=== PATIENT | male | born 1965 | race Asian ===

== ENCOUNTER 2024-07-23 11:31 | Emergency (ER) | payer OTHER, SELFPAY ==
--- NOTE | ~2024-07-23 | XR_ITS ---
CLINICAL HISTORY: injury, left rib pain 4 view, chest and left ribs Comparison: None Findings: Bones intact. No dislocations. Coarse calcification adjacent to the head of the left humerus compatible with calcific tendinitis of the rotator cuff. The lungs are unremarkable. IMPRESSION: 1. No acute fractures. This document has been electronically signed by: Ingrid Escobar MD on 07/23/2024 13:16:05
[2024-07-23 11:44] VITALS: PULSE 74; RESP 18; TEMP 37.3; O2SAT 95; BMI 25.5
--- NOTE | 2024-07-23 11:46 | ED.CHESTPAIN ---
HPI - Chest Pain General Chief Complaint: General Medical Stated Complaint: Pain R side Time Seen by Provider: 07/23/24 13:01 Source: patient, family (Son) and manager medical affairs (Z[place]an) Mode of arrival: ambulatory Limitations: language barrier (Z[place]an) History of Present Illness ED Provider: ROLA TRIPATHI PA-C HPI narrative: 59 year old [place]an speaking male presents to the ED today for evaluation of abdominal pain x4-5 days. Reports pain starts to the left side of his abdomen and radiate to the left side of his back. Pain has been increasing since onset. He has been trialing Tylenol at home without improvement. Pain is currently 9/10. No clear exacerbating or relieving factors. He states he may have knocked into something at work however can not recall. Denies hx of similar. Denies any associated symptoms such as fever, chills, chest pain, SOB, cough, nausea or vomiting, constipation, diarrhea, urinary symptoms including dysuria or hematuria. Reports cholecystectomy approximately 10 years ago. No other abdominal surgeries. Denies any illicit substance use. Denies EtOH consumption. Related Data Previous Rx's ?Medication ?Instructions ?Recorded gabapentin 100 mg capsule 100 mg PO TID PRN pain (scale 07/23/24 score 4-6) 14 days #42 caps valacyclovir 1 gram tablet 1,000 mg PO TID 7 days #21 tabs 07/23/24 (Valtrex) Allergies Allergy/AdvReac Type Severity Reaction Status Date / Time No Known Allergies Allergy Verified 07/23/24 11:49 Review of Systems Review of Systems: Yes all other systems are reviewed and are negative PMFSH Past Medical History Attestation statement: The following information was validated with the patient. Source: old records reviewed, obtained from family and nursing notes reviewed Social History Social History Advance Directives: No Advance Directives Information Provided: No Physical Exam Vital Signs: Vital Signs: Last Vital Signs Temp 98.7 F 07/23/24 14:30 Pulse 71 07/23/24 14:30 Resp 16 07/23/24 14:30 BP 134/84 07/23/24 14:30 Pulse Ox 97 07/23/24 14:30 O2 Del Method Room Air 07/23/24 14:30 BMI result Body Mass Index 25.5 vital signs stable, afebrile General: Well appearing, in no acute distress. Skin: +see photo of abdomen below. grouped pustules on erythematous base along dermatomes T6-T10 wrapping around to left back along same dermatomes. does not cross midline. No sloughing. No target lesions. Spares palms/soles/mucous membranes/webbed spaces. Head: Normocephalic, atraumatic. EENT: Hearing is intact b/l. Conjunctiva clear. Sclera is anicteric. PERRLA. EOM intact. Moist mucous membranes.? Cardiac: Chest wall symmetric. RRR Lungs: Normal respiratory effort without accessory muscle use. CTA bilaterally? Abdomen: see above. Soft, non-tender, non-distended. No rebound tenderness or guarding. Positive BS x4. no cvat. Back: No midline spinous or paraspinal tenderness. No step off deformity. Ext: Upper and lower extremities atraumatic, without tenderness, deformity, swelling or erythema Neuro: AOx3. Normal speech. Strength 5/5 intact throughout. No saddle anesthesia. Sensation intact to light touch. NV intact distally. Ambulating with steady gait. Course Course Course Narrative: 07/23/24 1145 ABoyd Regalado APRN This is a rapid medical exam. Deferred additional HPI, ROS, PE to primary provider. 59 yo male with PMH of HTN here with complaints of left rib pain after a work injury 3 days ago. Turned and hit his ribs on a hard object. Will check x-rays. VSS Reevaluation(s) Reevaluation #1: Physical exam is consistent with shingles rash. Labs/imaging not warranted. XR ribs ordered from triage prior to my evaluation. No acute findings. > used a [place]an manager medical affairs to explain my findings to patient and his son at bedside. Valtrex and gabapentin sent to pharmacy for treatment. Patient agreeable with this. Discussed shingles precautions. Patient has remained stable throughout ED visit today. Discussed worrisome signs and symptoms and when to return to the ED. All questions answered at this time. Patient is agreeable with disposition and stable for discharge. Medical Decision Making Medical Decision Making MDM Narrative: 59 year old [place]an speaking male presents to the ED today for evaluation of abdominal pain x4-5 days. Vital signs stable, afebrile. He is nontoxic appearing in no acute distress. On exam of abdomen/back, grouped pustules on erythematous base along dermatomes T6-T10 wrapping around to left back along same dermatomes. does not cross midline. No sloughing. No target lesions. Spares palms/soles/mucous membranes/webbed spaces. Abdomen is soft, nondistended, nontender to palpation without rebound or guarding. No CVAT bilaterally. Rash is consistent with shingles. I have also considered contact/atopic/eczematous dermatitis, psoriasis. History and exam findings not consistent with lyme/tick bourne illness, scabies, HFM,? dangerous etiologies of rash such as SJS/TEN, or secondary dangerous causes such as petechial rashes from thrombocytopenia or rickettsial infections.? Unlikely acute intrathoracic or intra-abdominal pathology. Plan to treat shingles infection with Valtrex and gabapentin. XR ribs ordered from triage. plan to review and re-evaluate. Differential Diagnosis Differential Diagnoses: The differential diagnosis associated with the presentation includes as above. Admission/Observation not indicated. Independent Interpretation I performed an independent interpretation of an: Plain X-Ray Interpretation: xr right ribs w/o fracture Radiology Impression Discussion of test interpretation with radiology: I have reviewed the radiologist's reading. Radiologist Impression: Procedure(s): XR ribs LT min 3V w CXR1V Accession Number(s): [id number] cc: [place]; Ingris Regalado [employer]~ CLINICAL HISTORY: injury, left rib pain 4 view, chest and left ribs Comparison: None Findings: Bones intact. No dislocations. Coarse calcification adjacent to the head of the left humerus compatible with calcific tendinitis of the rotator cuff. The lungs are unremarkable. IMPRESSION: 1. No acute fractures. This document has been electronically signed by: Ingrid Escobar MD on 07/23/2024 13:16:05 Independent Historian Clinical information obtained from an independent historian. History obtained from or confirmed by: Other (son) Prescription Management I considered prescription management with: Pain Medication (Gabapentin) and Antiviral (Valtrex) Chronic Conditions Patient?s care impacted by: Hypertension Social Determinants Patient?s care significantly limited by Social Determinants of Health including: Other Social Determinant of Health Critical Care Time Critical Care Time Critical Care Time: No Discharge Plan Discharge Clinical Impression: Shingles Patient Disposition: Home, Self-Care Instructions: Gabapentin (By mouth), Valacyclovir (By mouth), Shingles (ED) Additional Instructions: As discussed, your physical exam is consistent with shingles (a rash due to a virus that lies dormant and are body). See home care instructions. The treatment for this is with an antiviral medication called valtrex. I have sent this to your pharmacy. Take 1 g of Valtrex 3 times daily for the next 7 days. For your pain, I am sending gabapentin to your pharmacy. You may take 100 mg up to 3 times daily. Please note that gabapentin can make you tired. Please refrain from driving while taking this medication. You may also take Tylenol and Motrin as needed. Shingles is contagious until all lesions have scabbed over. Please limit contact with others, specifically peoples. Please follow up with your primary care provider. Return with new or worsening symptoms. In the case of an emergency call 911. Prescriptions: New gabapentin 100 mg capsule 100 mg PO TID PRN (Reason: pain (scale score 4-6)) 14 Days Qty: 42 0RF valacyclovir [Valtrex] 1 gram tablet 1,000 mg PO TID 7 Days Qty: 21 0RF Referrals: [facility] [Primary Care Provider] - Stand Alone Forms: Work/School Release Interventions: ED Discharge Assessment Last Done: 07/23/24 14:30 Discharge Date/Time: 07/23/24 14:32 Print Language: [place]an
[2024-07-23 13:06] VITALS: BP 134/84; PULSE 71; RESP 16; O2SAT 97
--- NOTE | 2024-07-23 13:12 | PC.NURSE ---
Patient presents from home with family with left sided abdominal pain radiating to his back via a Polish interpretor for the past 5 days. Denies any urinary symptoms or N/V/D. Respirations even and non-labored. Abdomen soft, distended with positive bowel sounds. Sl LUQ tenderness noted. Positive pedal pulses with no edema noted.
[2024-07-23 14:30] VITALS: BP 134/84; PULSE 71; RESP 16; TEMP 37.1; O2SAT 97
== END 2024-07-23 14:32 | disposition home or self-care (01) ==
PROVIDERS: Emergency Provider Emergency Medicine Emergency Medical Services; PCP Dentist General Practice
DX: B02.9 Zoster without complications (principal); R10.9 Unspecified abdominal pain; L08.9 Local infection of the skin and subcutaneous tissue, unspecified
CPT/HCPCS: 71101; 99283; 99284

== ENCOUNTER → 2024-07-23 11:50 | Outpatient (BNV) | payer OTHER, SELFPAY | PROVIDERS: Emergency Provider Emergency Medicine Emergency Medical Services; PCP Dentist General Practice; Visit Provider Radiology Diagnostic Radiology | DX: R07.81 Pleurodynia (principal) | CPT/HCPCS: 71101 ==